=== PATIENT | female | born 1930 | race Caucasian/White ===

== ENCOUNTER 2019-10-04 12:40 | Emergency (ER) | payer MEDICARE, OTHER ==
[2019-10-04] MEDS ORDERED: Diphtheria,Pertussis(Acell),Tetanus Vaccine 0.5 ML Syringe IM ONE (13:04)
--- NOTE | 2019-10-04 13:09 | EDM.PDOC ---
ED HPI GENERAL MEDICAL PROBLEM - General Chief Complaint: General Stated Complaint: rib pain r/t fall Time Seen by Provider: 10/04/19 13:00 Source of Information: Reports: Patient History Limitations: Reports: No Limitations - History of Present Illness INITIAL COMMENTS - FREE TEXT/NARRATIVE: This patient is an 89 year old female that presents to the ER. Patient reports she was woring outside on the weeds, when she went to turn to quickly with bilateral nee replacements and fell backwards. Patient reports having right lower/id back pain over the rib. Patient reports she has no pain unless she stands up or pushes on it. Patient denies hitting head, loc, n, v, vision changes, neck pain, or any other pain complaints other than right back and also wounds to right elbow. However, the patient absolutely refuses to allow me to look at her elbow wound. She has this covered with some skin tear dressing and she will not allow me to remove to look at. She reports its skin tears and I would disrupt it healing. She reports she cleaned it already. Onset: Today Onset Date: 10/04/19 Duration: Hour(s): (2) Location: Reports: Back Front/Back Body Image: 1 - mild tenderness. 2 - bandage with blood seen. Patient refuses to allow me to visualize. Severity: Mild Improves with: Reports: Rest Worsens with: Reports: Movement Associated Symptoms: Denies: Confusion, Chest Pain, Cough, cough w sputum, Diaphoresis, Fever/Chills, Headaches, Loss of Appetite, Malaise, Nausea/Vomiting , Rash, Seizure, Shortness of Breath, Syncope, Weakness - Related Data Allergies Allergy/AdvReac Type Severity Reaction Status Date / Time No Known Allergies Allergy Verified 10/04/19 12:52 Home Meds: Home Meds Levothyroxine 25 mcg PO DAILY 10/04/19 [History] Past Medical History Cardiovascular History: Reports: Hypertension Genitourinary History: Reports: Urinary Incontinence Psychiatric History: Reports: Anxiety Endocrine/Metabolic History: Reports: Hypothyroidism - Past Surgical History Musculoskeletal Surgical History: Reports: Knee Replacement Other Musculoskeletal Surgeries/Procedures:: L knee 2016; R knee 07/08/2019 Social & Family History - Tobacco Use Smoking Status *Q: Never Smoker ED ROS GENERAL - Review of Systems Review Of Systems: See Below Constitutional: Reports: No Symptoms HEENT: Reports: No Symptoms. Denies: Vertigo, Vision Change Respiratory: Reports: No Symptoms. Denies: Shortness of Breath, Wheezing, Pleuritic Chest Pain, Cough, Sputum, Hemoptysis Cardiovascular: Reports: No Symptoms. Denies: Chest Pain, Dyspnea on Exertion, Lightheadedness, Palpitations, Syncope Endocrine: Reports: No Symptoms GI/Abdominal: Reports: No Symptoms. Denies: Abdominal Pain, Nausea, Vomiting : Reports: No Symptoms Musculoskeletal: Reports: Other (right lower/id back pain over rib per patient only with standing and pushing on. ) Skin: Reports: No Symptoms Neurological: Reports: No Symptoms. Denies: Confusion, Dizziness, Headache, Numbness, Seizure, Syncope, Tingling, Trouble Speaking, Difficulty Walking, Weakness, Change in Speech, Gait Disturbance Psychiatric: Reports: No Symptoms Hematologic/Lymphatic: Reports: No Symptoms Immunologic: Reports: No Symptoms ED EXAM, GENERAL - Physical Exam Exam: See Below Exam Limited By: No Limitations General Appearance: Alert, WD/WN, No Apparent Distress Eye Exam: Bilateral Eye: EOMI, Normal Inspection (glasses removed for exam), PERRL Ears: Normal External Exam, Normal Canal, Hearing Grossly Normal, Normal TMs Ear Exam: Bilateral Ear: Auricle Normal, Canal Normal, TM normal Nose: Normal Inspection, Normal Mucosa, No Blood Throat/Mouth: Normal Inspection, Normal Lips, Normal Teeth, Normal Gums, Normal Oropharynx, Normal Voice, No Airway Compromise Head: Atraumatic, Normocephalic Neck: Normal Inspection, Supple, Non-Tender, Full Range of Motion Respiratory/Chest: No Respiratory Distress, Lungs Clear, Normal Breath Sounds, No Accessory Muscle Use, Chest Non-Tender. No: Respiratory Distress, Decreased Breath Sounds, Crackles, Rales, Rhonchi, Wheezing, Stridor, Pleural Rub, Accessory Muscle Use, Retractions, Splinting, Prolonged Expiration Cardiovascular: Normal Peripheral Pulses, Regular Rate, Rhythm, No Edema, No Gallop, No JVD, No Murmur, No Rub Peripheral Pulses: 2+: Radial (L), Radial (R), Posterior Tibial (L), Posterior Tibial (R) GI/Abdominal: Soft, Non-Tender, No Organomegaly, No Abnormal Bruit, No Mass, Pelvis Stable Back Exam: Normal Inspection, Full Range of Motion, Other (right mid back tenderness mild at apprx 10th rib. ). No: CVA Tenderness (L), CVA Tenderness (R ), Decreased Range of Motion, Muscle Spasm, Paraspinal Tenderness, Vertebral Tenderness Extremities: Normal Range of Motion, Non-Tender, No Pedal Edema, Normal Capillary Refill Neurological: Alert, Oriented, Normal Cognition, Normal Gait, No Motor/Sensory Deficits Psychiatric: Normal Affect, Normal Mood Skin Exam: Warm, Dry, Normal Color, No Rash, Wound/Incision (probable wound right elbow, patient will not allow visualization.) Course - Vital Signs Last Recorded V/S: Last Vital Signs Temp 97.7 F 10/04/19 12:46 Pulse 84 10/04/19 12:46 Resp 18 10/04/19 12:46 BP 134/78 10/04/19 12:46 Pulse Ox 97 10/04/19 12:46 - Orders/Labs/Meds Orders: Active Orders 24 hr Category Date Time Status Incentive Spirometry [RT Incentive Spirometry] [RC] Care 10/04/19 13:15 Active ASDIRECTED Vaccines to be Administered [RC] PER UNIT ROUTINE Care 10/04/19 13:04 Active Ribs 2V w Chest Rt [CR] Stat Exams 10/04/19 13:04 Ordered Meds: Medications Discontinued Medications Generic Name Dose Route Start Last Admin Trade Name Freq PRN Reason Stop Dose Admin Diphtheria/Tetanus/Acell Pertussis 0.5 ml 10/04/19 13:04 10/04/19 13:14 Adacel IM 10/04/19 13:05 0.5 ml .ONCE ONE Administration - Radiology Interpretation Free Text/Narrative:: Right ribs with chest Xray: I do not see fracture. No pneumo, no hemothorax. - Re-Assessments/Exams Free Text/Narrative Re-Assessment/Exam: 10/04/19 13:24 Patient has refused incentive spirometer. Departure - Departure Time of Disposition: 13:38 Disposition: Home, Self-Care 01 Condition: Fair Clinical Impression: Contusion of rib on right side Qualifiers: Encounter type: initial encounter Qualified Code(s): S20.211A - Contusion of right front wall of thorax, initial encounter - Discharge Information *PRESCRIPTION DRUG MONITORING PROGRAM REVIEWED*: Not Applicable *COPY OF PRESCRIPTION DRUG MONITORING REPORT IN PATIENT [place]: Not Applicable Instructions: Skin Tear, [id number], Rib Contusion Referrals: PCP,None [Primary Care Provider] - Forms: ED Department Discharge Additional Instructions: Followup with your primary care provider this week for recheck Return to the ER for worsening of condition or emergent concerns such as shortness of breath, fever, coughing, chest pain Take big deep breaths regularly to prevent pneumonia Tylenol for pain Keep wound clean and covered Sepsis Event Note - Evaluation Sepsis Screening Result: No Definite Risk - Focused Exam Vital Signs: Vital Signs Temp Pulse Resp BP Pulse Ox 10/04/19 12:46 97.7 F 84 18 134/78 97 Date Exam was Performed: 10/04/19 Time Exam was Performed: 13:30 - My Orders Last 24 Hours: My Active Orders 10/04/19 13:04 Vaccines to be Administered [RC] PER UNIT ROUTINE Ribs 2V w Chest Rt [CR] Stat 10/04/19 13:15 Incentive Spirometry [RT Incentive Spirometry] [RC] ASDIRECTED - Assessment/Plan Last 24 Hours: My Active Orders 10/04/19 13:04 Vaccines to be Administered [RC] PER UNIT ROUTINE Ribs 2V w Chest Rt [CR] Stat 10/04/19 13:15 Incentive Spirometry [RT Incentive Spirometry] [RC] ASDIRECTED
== END 2019-10-04 13:45 | disposition home or self-care (01) ==
LOC: CC.ED 12:40
DX: S20.211A Contusion of right front wall of thorax, initial encounter (principal); E03.9 Hypothyroidism, unspecified; I10 Essential (primary) hypertension; Z79.899 Other long term (current) drug therapy; Z23 Encounter for immunization; W18.30XA Fall on same level, unspecified, initial encounter
CPT/HCPCS: 71101-RT; 90471; 90715; 99283-25; 99284